=== PATIENT | male | born 1980 | race Caucasian/White ===

== ENCOUNTER 2019-06-09 15:48 | Emergency (ER) | payer SELFPAY ==
[~2019-06-09] VITALS: Ht 170.2 cm; Wt 73.5 kg
[2019-06-09 16:00] VITALS: BP 142/93
[2019-06-09] MEDS ORDERED: LIDOCAINE MPF 1% 10 MG/ML VIAL INJ ONE ×2 (16:05→17:00)
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
[2019-06-09] MEDS ORDERED: LIDOCAINE/PRILOCAINE 2.5% 5 GM TUBE TP ONE (16:15)
--- NOTE | 2019-06-09 16:25 | NUR ---
PT SOAKING DRY BLOODY GAUZE OFF OF RING FINGER W/ NS. PENDING SUTURE REPAIR AT BED SIDE. SUTURE FIONA WARE NS AT BEDSIDE TABLE.
[2019-06-09] MEDS ORDERED: KETOROLAC 30 MG/ML VIAL IM ONE (16:30)
--- NOTE | 2019-06-09 16:35 | NUR ---
YAMLIA LAGOS AT BEDSIDE, FINGER NEEDS FURTHER EVAL, HAND XRAY ODERED. TORADOL 30 MG IM GIVEN, PT TOLERATED WELL.
[2019-06-09] MEDS ORDERED: cefTRIAXone 1,000 MG in LIDOCAINE MPF 1% 2.1 ML IM ONE (17:25)
--- NOTE | 2019-06-09 17:30 | NUR ---
PATIENT WOUND TO RIGHT RING FINGER WITH GROSS EDEMA AND PRESENTS WITH DIFFICULTY FOR SUTURING DUE TO EXCESS SOFT TISSUE. PENDING WOUND DRESSING AND SPLINT PLACEMENT. PT REFERED TO [facility] HAND SURGEON.
[2019-06-09 18:35] VITALS: BP 134/88
--- NOTE | 2019-06-09 18:45 | NUR ---
D/C HOME.Patient discharged with v/s stable. RX X2, Written and verbal after care instructions given and explained. Patient verbalized understanding IN [place]ARO[place]. PATIENT AND DAUGHTER Ambulatory with steady gait. All questions addressed prior to discharge. Advised to follow up with ORTHO SURGEON NIDA DORANTES OR [facility]..
== END 2019-06-09 18:40 | disposition home or self-care (01) ==
LOC: MED 15:48
DX: S61.214A Laceration without foreign body of right ring finger without damage to nail, initial encounter (principal); W20.8XXA Other cause of strike by thrown, projected or falling object, initial encounter; Y93.89 Activity, other specified; Y92.89 Other specified places as the place of occurrence of the external cause; Y99.8 Other external cause status
CPT/HCPCS: 12002; 73140; 96372; 99283; J0696; J1885; J2001; Q0092